=== PATIENT | female | born 1955 | race Caucasian/White ===

== ENCOUNTER 2018-02-16 05:38 | Emergency (ER) | payer SELFPAY ==
[2018-02-16] MEDS ORDERED: CEFTRIAXONE 1 GM/D5W RTU 1 GM/50 ML RTUPB IV ONE (05:41)
--- NOTE | 2018-02-16 05:47 | ER Document Report ---
Doctor's Note Notes: 02/16/18 05:46 62-year-old female who presents here from [place] with complaints of nausea vomiting diarrhea fever of 2 day duration. Patient also notes she has a history of anxiety and depression and that she was taking her clonazepam because of stressful and she may have taken too much of it EMS noted temperature 102.9 and give Tylenol prior to arrival I have greeted and performed a rapid initial assessment of this patient. A comprehensive ED assessment and evaluation of the patient, analysis of test results and completion of the medical decision making process will be conducted by additional ED providers. PHYSICAL EXAMINATION: GENERAL: Febrile drowsy HEAD: Atraumatic, normocephalic. EYES: Pupils equal round extraocular movements intact, conjunctiva are normal. ENT: Nares patent NECK: Normal range of motion LUNGS: Decreased breath sounds at the bases Musculoskeletal: Normal range of motion NEUROLOGICAL: Normal speech, normal gait. PSYCH: Normal mood, normal affect. SKIN: Warm, Dry, normal turgor, no rashes or lesions noted.
--- NOTE | 2018-02-16 06:21 | EKG REPORT ---
SEVERITY:- ABNORMAL ECG - SINUS TACHYCARDIA BORDERLINE LEFT AXIS DEVIATION BORDERLINE T ABNORMALITIES, INFERIOR LEADS : Confirmed by: Adriel Musa MD 16-Feb-2018 06:20:53
--- NOTE | 2018-02-16 06:24 | ER Document Report ---
ED General - General Chief Complaint: Fever Stated Complaint: FEVER Time Seen by Provider: 02/16/18 05:41 Mode of Arrival: Ambulatory Information source: Patient, Relative Notes: 62-year-old female with a history of hypertension, diabetes, anxiety and depression presents from home with complaints of shortness of breath, cough, chills, nausea, vomiting, diarrhea and abdominal pain as well as headache. Patient states symptoms started 2 days prior to arrival. She states that for over the last few days she has felt chills. She has had a intermittent productive cough that is associated with shortness of breath. Her abdominal pain and vomiting began last night. She states she has had 5 episodes of nonbloody nonbilious vomiting. Patient has had intermittent episodes of abdominal cramping that is diffusely located, described as cramping and worsened with coughing. Patient has also had 3-4 episodes of nonbloody diarrhea. Patient admits to taking 3-10 mg clonazepam not to harm herself but because she has not been able to sleep for the last few days. Denies suicidal and homicidal ideation. She does state she has been recently under a lot of stress due to her strained relationship with her daughter in [place]. She has had no recent travel, or antibiotic use. TRAVEL OUTSIDE OF THE [place] 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 - Social History Smoking Status: Never Smoker Chew tobacco use (# tins/day): Yes Frequency of alcohol use: None Drug Abuse: None Lives with: Family Family History: Reviewed & Not Pertinent Patient has suicidal ideation: No Patient has homicidal ideation: No - Past Medical History Cardiac Medical History: Reports: Hx Heart Attack, Hx Hypertension Endocrine Medical History: Reports: Hx Diabetes Mellitus Type 2, Hx Hyperthyroidism Renal/ Medical History: Denies: Hx Peritoneal Dialysis Past Surgical History: Reports: Hx Section - 1991 Review of Systems - Review of Systems Notes: Patient complaining of headache, nausea, vomiting, shortness of breath, productive cough, abdominal pain, diarrhea. She denies any chest pain, back pain, dysuria, hematuria, vaginal discharge Physical Exam - Vital signs Vitals: Pulse Ox 93 02/16/18 05:43 Interpretation: Normal, Tachycardic, Febrile - Notes Notes: PHYSICAL EXAMINATION: GENERAL: Well-appearing, well-nourished and in no acute distress. Patient does not appear toxic HEAD: Atraumatic, normocephalic. EYES: Pupils equal round and reactive to light, extraocular movements intact, conjunctiva are normal. ENT: Nares patent, oropharynx clear without exudates. dry mucous membranes. NECK: Normal range of motion, supple without lymphadenopathy LUNGS: Breath sounds clear to auscultation bilaterally and equal. No wheezes rales or rhonchi. HEART: Regular rate and rhythm without murmurs ABDOMEN: Soft, nontender, nondistended abdomen. No guarding, no rebound. No masses appreciated. Female : deferred Musculoskeletal: Normal range of motion, no pitting or edema. No cyanosis. NEUROLOGICAL: Cranial nerves grossly intact. Normal speech, normal gait. Normal sensory, motor exams PSYCH: Normal mood, normal affect. SKIN: Warm, Dry, normal turgor, no rashes or lesions noted. Course - Re-evaluation Re-evalutation: Laboratory 02/16/18 02/16/18 02/16/18 05:57 06:10 06:10 WBC 9.6 RBC 4.48 Hgb 12.0 Hct 35.9 L MCV 80 MCH 26.8 L MCHC 33.4 RDW 14.5 H Plt Count 251 Seg Neutrophils % 87.1 H Lymphocytes % 8.0 L Monocytes % 2.7 L Eosinophils % 1.5 Basophils % 0.7 Absolute Neutrophils 8.3 H Absolute Lymphocytes 0.8 Absolute Monocytes 0.3 Absolute Eosinophils 0.1 Absolute Basophils 0.1 PT 15.0 INR 1.12 VBG pH VBG pCO2 VBG HCO3 VBG Base Excess Sodium Potassium Chloride Carbon Dioxide Anion Gap BUN Creatinine Est GFR ( Amer) Est GFR (Non-Af Amer) Glucose POC Glucose 158 H Lactic Acid Calcium Total Bilirubin Direct Bilirubin Neonat Total Bilirubin Neonat Direct Bilirubin Neonat Indirect Bili AST ALT Alkaline Phosphatase Total Protein Albumin Urine Color Urine Appearance Urine pH Ur Specific Warren Urine Protein Urine Glucose (UA) Urine Ketones Urine Blood Urine Nitrite Urine Bilirubin Urine Urobilinogen Ur Leukocyte Esterase Urine WBC (Auto) Urine RBC (Auto) Urine Bacteria (Auto) Squamous Epi Cells Auto Urine Mucus (Auto) Urine Ascorbic Acid 02/16/18 02/16/18 02/16/18 06:10 06:10 06:10 WBC RBC Hgb Hct MCV MCH MCHC RDW Plt Count Seg Neutrophils % Lymphocytes % Monocytes % Eosinophils % Basophils % Absolute Neutrophils Absolute Lymphocytes Absolute Monocytes Absolute Eosinophils Absolute Basophils PT INR VBG pH 7.40 VBG pCO2 41.4 VBG HCO3 24.8 VBG Base Excess 0 Sodium 142.0 Potassium 3.6 Chloride 101 Carbon Dioxide 26 Anion Gap 15 BUN 12 Creatinine 0.62 Est GFR ( Amer) > 60 Est GFR (Non-Af Amer) > 60 Glucose 162 H POC Glucose Lactic Acid 2.0 Calcium 9.5 Total Bilirubin 1.4 H Direct Bilirubin 0.6 H Neonat Total Bilirubin Not Reportable Neonat Direct Bilirubin Not Reportable Neonat Indirect Bili Not Reportable AST 47 H ALT 44 Alkaline Phosphatase 96 Total Protein 7.3 Albumin 4.0 Urine Color Urine Appearance Urine pH Ur Specific Warren Urine Protein Urine Glucose (UA) Urine Ketones Urine Blood Urine Nitrite Urine Bilirubin Urine Urobilinogen Ur Leukocyte Esterase Urine WBC (Auto) Urine RBC (Auto) Urine Bacteria (Auto) Squamous Epi Cells Auto Urine Mucus (Auto) Urine Ascorbic Acid 02/16/18 02/16/18 06:20 07:36 WBC RBC Hgb Hct MCV MCH MCHC RDW Plt Count Seg Neutrophils % Lymphocytes % Monocytes % Eosinophils % Basophils % Absolute Neutrophils Absolute Lymphocytes Absolute Monocytes Absolute Eosinophils Absolute Basophils PT INR VBG pH VBG pCO2 VBG HCO3 VBG Base Excess Sodium Potassium Chloride Carbon Dioxide Anion Gap BUN Creatinine Est GFR ( Amer) Est GFR (Non-Af Amer) Glucose POC Glucose 127 H Lactic Acid Calcium Total Bilirubin Direct Bilirubin Neonat Total Bilirubin Neonat Direct Bilirubin Neonat Indirect Bili AST ALT Alkaline Phosphatase Total Protein Albumin Urine Color YELLOW Urine Appearance SLIGHTLY-CLOUDY Urine pH 6.0 Ur Specific Warren 1.010 Urine Protein 30 H Urine Glucose (UA) 50 H Urine Ketones NEGATIVE Urine Blood SMALL H Urine Nitrite POSITIVE H Urine Bilirubin NEGATIVE Urine Urobilinogen 4.0 H Ur Leukocyte Esterase MODERATE H Urine WBC (Auto) 120 Urine RBC (Auto) 11 Urine Bacteria (Auto) 3+ Squamous Epi Cells Auto <1 Urine Mucus (Auto) RARE Urine Ascorbic Acid NEGATIVE Chest X-Ray 02/16/18 05:45 IMPRESSION: 1. No acute pulmonary process identified. Head CT 02/16/18 06:17 IMPRESSION: 1. No acute intracranial abnormality identified. This exam was performed according to our departmental dose-optimization program, which includes automated exposure control, adjustment of the mA and/or kV according to patient size and/or use of iterative reconstruction technique. Abdomen/Pelvis CT 02/16/18 06:18 IMPRESSION: 1. Small right inguinal hernia contains a loop of small bowel. No evidence of mechanical bowel obstruction. 2. Otherwise unremarkable abdominopelvic CT with IV contrast. 02/16/18 06:24 62-year-old female with a history of hypertension, diabetes, anxiety and depression presents from home with complaints of shortness of breath, cough chills, nausea, vomiting, diarrhea and abdominal pain as well as headache. Patient states symptoms started 2 days prior to arrival. She states that for over the last few days she has felt chills. He has had a intermittent productive cough that is associated with shortness of breath. Her abdominal pain and vomiting began last night. Upon arrival vitals are reviewed. Patient is tachycardic, febrile. She is alert and oriented 3. Exam is essentially normal except for dry mucous membranes. Patient denies intentional overdose with her clonazepam and states that she took extra to help her sleep. Sepsis workup initiated. 02/16/18 07:58 Patient informed that she has a urinary tract infection. Ceftriaxone, IV fluids , Tylenol, Toradol, Zofran was administered. She is declining admission to the hospital. 02/16/18 11:17 On reevaluation patient states that she still has a headache even though the Tylenol intermittently helped. She has no evidence of nuchal rigidity or meningismus. She has had no head trauma. CT of the brain was within normal limits. CT of the abdomen and pelvis shows a small right inguinal hernia but without evidence of incarceration, strangulation, obstruction and free air. She states she drinks coffee every morning and thinks this is why she has a headache. She is still declining admission. She is requesting food and coffee which was provided to the patient. Patient is able to ambulate without difficulty or assistance. Patient will be discharged home with recommendations to return if she is unable to tolerate her in antibiotics. 02/16/18 11:21 Patient's heart rate improved and fever has resolved prior to discharge home.. 02/16/18 17:50 - Vital Signs Vital signs: Temp Pulse Resp BP Pulse Ox 98.6 F 17 109/53 L 99 02/16/18 11:09 02/16/18 11:09 02/16/18 11:09 02/16/18 11:09 - Laboratory Result Diagrams: 02/16/18 06:10 02/16/18 06:10 Laboratory results interpreted by me: 02/16/18 02/16/18 02/16/18 05:57 06:10 06:10 Hct 35.9 L MCH 26.8 L RDW 14.5 H Seg Neutrophils % 87.1 H Lymphocytes % 8.0 L Monocytes % 2.7 L Absolute Neutrophils 8.3 H Glucose 162 H POC Glucose 158 H Total Bilirubin 1.4 H Direct Bilirubin 0.6 H AST 47 H Urine Protein Urine Glucose (UA) Urine Blood Urine Nitrite Urine Urobilinogen Ur Leukocyte Esterase 02/16/18 02/16/18 06:20 07:36 Hct MCH RDW Seg Neutrophils % Lymphocytes % Monocytes % Absolute Neutrophils Glucose POC Glucose 127 H Total Bilirubin Direct Bilirubin AST Urine Protein 30 H Urine Glucose (UA) 50 H Urine Blood SMALL H Urine Nitrite POSITIVE H Urine Urobilinogen 4.0 H Ur Leukocyte Esterase MODERATE H - Diagnostic Test Radiology reviewed: Image reviewed, Reports reviewed - EKG Interpretation by Me EKG shows normal: Sinus rhythm Rate: Tachycardia Rhythm: NSR Discharge - Discharge Clinical Impression: Fever Qualifiers: Fever type: unspecified Qualified Code(s): R50.9 - Fever, unspecified Inguinal hernia Qualifiers: Obstruction and gangrene presence: without obstruction or gangrene Laterality: unilateral Recurrence: recurrent Qualified Code(s): K40.91 - Unilateral inguinal hernia, without obstruction or gangrene, recurrent Condition: Good Disposition: HOME, SELF-CARE Instructions: Fever ([facility]), Urinary Tract Infection, Child ([facility]) Additional Instructions: Follow up with your physician tomorrow for further care or return to the ED IMMEDIATELY if symptoms worsen or new concerns occur. If you cannot afford to follow up with your primary care physician a list of low cost clinics have been provided at the end of your discharge papers as well. Prescriptions: Ciprofloxacin HCl [Cipro 500 mg Tablet] 500 mg PO BID #14 tablet
[2018-02-16 06:27] LABS: ABSOLUTE BASOPHILS # (AUTO) 0.1 10^3/uL (0.0-0.2); ABSOLUTE EOSINOPHILS # (AUTO) 0.1 10^3/uL (0.0-0.6); ABSOLUTE LYMPHOCYTES (AUTO) 0.8 10^3/uL (0.5-4.7); ABSOLUTE MONOCYTES (AUTO) 0.3 10^3/uL (0.1-1.4); ABSOLUTE NEUT (AUTO) 8.3 10^3/uL (1.7-8.2); BASOPHILS % (AUTO) 0.7 % (0-2); EOSINOPHILS % (AUTO) 1.5 % (0-6); HEMATOCRIT 35.9 % (36.0-47.0); MEAN CORPUSCULAR HEMOGLOBIN 26.8 pg (27.0-33.4); MEAN CORPUSCULAR HGB CONC 33.4 g/dL (32.0-36.0); MEAN CORPUSCULAR VOLUME 80 fl (80-97); MONOCYTES % (AUTO) 2.7 % (3-13); PLATELET COUNT 251 10^3/uL (150-450); RED BLOOD COUNT 4.48 10^6/uL (3.72-5.28); RED CELL DISTRIBUTION WIDTH 14.5 % (11.5-14.0); SEGMENTED NEUTROPHILS % (AUTO) 87.1 % (42-78); TOTAL CELLS COUNTED % (AUTO) 100 %; WHITE BLOOD COUNT 9.6 10^3/uL (4.0-10.5)
[2018-02-16 06:34] LABS: VENOUS BLOOD HCO3 24.8 mmol/L (20-32); VENOUS BLOOD PCO2 41.4 mmHg (35-63); VENOUS BLOOD PH 7.4 (7.30-7.42)
[2018-02-16 06:38] LABS: APPEARANCE,URINE SLIGHTLY-CLOUDY; BILIRUBIN,URINE NEGATIVE (NEGATIVE); COLOR,URINE YELLOW; GLUCOSE, URINE 50 mg/dL (NEGATIVE); KETONES,URINE NEGATIVE (NEGATIVE); LEUKOCYTE ESTERASE,URINE MODERATE (NEGATIVE); NITRITE,URINE POSITIVE (NEGATIVE); PROTEIN,URINE 30 mg/dL (NEGATIVE)
[2018-02-16 06:44] LABS: INTERNATIONAL RATION (INR) 1.12
[2018-02-16 06:48] LABS: ALANINE AMINOTRANSFERASE 44 U/L (9-52); ALKALINE PHOSPHATASE 96 U/L (38-126); ANION GAP 15 (5-19); ASPARTATE AMINO TRANSFERASE 47 U/L (14-36); BILIRUBIN,DIRECT 0.6 mg/dL (0.0-0.4); BILIRUBIN,TOTAL 1.4 mg/dL (0.2-1.3); BLOOD UREA NITROGEN 12 mg/dL (7-20); CALCIUM 9.5 mg/dL (8.4-10.2); CARBON DIOXIDE 26 mmol/L (22-30); CHLORIDE 101 mmol/L (98-107); GLUCOSE 162 mg/dL (75-110); POTASSIUM 3.6 mmol/L (3.6-5.0); TOTAL PROTEIN 7.3 g/dL (6.3-8.2)
--- NOTE | 2018-02-16 07:03 | RADIOLOGY REPORT (SQ) ---
EXAM DESCRIPTION: CHEST 2 VIEWS CLINICAL HISTORY: Febrile cough COMPARISON: 05/06/2013 FINDINGS: Frontal and lateral views of the chest. Atherosclerotic calcification and tortuosity of the thoracic aorta. No consolidation, pneumothorax, or pleural effusion. No displaced rib fractures identified. Leads overlie the chest. Upper abdominal soft tissues are unremarkable. IMPRESSION: 1. No acute pulmonary process identified.
--- NOTE | 2018-02-16 07:13 | RADIOLOGY REPORT (SQ) ---
EXAM DESCRIPTION: CT HEAD WITHOUT CLINICAL HISTORY: headache COMPARISON: None available TECHNIQUE: Axial CT of the head obtained from the skull apex to the skull base without contrast. FINDINGS: No acute intracranial hemorrhage identified. No mass, mass effect, shift of the midline, abnormal extra-axial fluid collection or CT evidence of acute ischemic change identified. The ventricular system is unremarkable. No acute abnormalities of the supratentorial white matter, basal ganglia, cerebellum, or brainstem. The visualized paranasal sinuses and the mastoids are clear. No skull fracture identified. Visualized orbits and globes are unremarkable. DLP:1043.77 mGy-cm IMPRESSION: 1. No acute intracranial abnormality identified. This exam was performed according to our departmental dose-optimization program, which includes automated exposure control, adjustment of the mA and/or kV according to patient size and/or use of iterative reconstruction technique.
[2018-02-16] MEDS: NORMAL SALINE 1000 ML 1,000 ML IV PRN ×2 (07:33→09:16)
[2018-02-16] MEDS ORDERED: CEFTRIAXONE SODIUM 1,000 MG in DEXTROSE 5%-WATER 50 ML IV ONE (08:00)
--- NOTE | 2018-02-16 08:16 | RADIOLOGY REPORT (SQ) ---
EXAM DESCRIPTION: CT ABD/PELVIS WITH IV ONLY COMPLETED DATE/TIME: 02/16/2018 7:04 am REASON FOR STUDY: abd pain fever COMPARISON: None. TECHNIQUE: CT scan of the abdomen and pelvis performed using helical scanning technique with dynamic intravenous contrast injection. No oral contrast. Images reviewed with lung, soft tissue, and bone windows. Reconstructed coronal and sagittal MPR images reviewed. Delayed images for evaluation of the urinary system also acquired. All images stored on PACS. All CT scanners at this facility use dose modulation, iterative reconstruction, and/or weight based d osing when appropriate to reduce radiation dose to as low as reasonably achievable (ALARA). [facility]: Dose Right [facility]: CareDose [facility]: Dose Right [facility]: Teradose 4D [facility]: [employer] CONTRAST TYPE AND DOSE: contrast/concentration: Isovue 370.00 mg/ml; Total Contrast Delivered: 100.0 ml; Total Saline Delivered: 70.0 ml RENAL FUNCTION: Creatinine 0.6 RADIATION DOSE: CT Rad equipment meets quality standard of care and radiation dose reduction techniq ues were employed. CTDIvol: 9.6 - 14.4 mGy. DLP: 1405 mGy-cm.. LIMITATIONS: None. FINDINGS: LOWER CHEST: No significant findings. No nodules or infiltrates. LIVER: Normal size. No masses. No dilated ducts. SPLEEN: Normal size. No focal lesions. PANCREAS: No masses. No significant calcifications. No adjacent inflammation or peripancreatic fluid collections. Pancreatic duct not dilated. GALLBLADDER: Absent. ADRENAL GLANDS: No significant masses or asymmetry. RIGHT KIDNEY AND URETER: No solid masses. No significant calcification. No hydronephrosis or hydroure ter. LEFT KIDNEY AND URETER: No solid masses. No significant calcification. No hydronephrosis or hydrouret er. AORTA AND VESSELS: No aneurysm. No dissection. Renal arteries, SMA, celiac without stenosis. RETROPERITONEUM: No retroperitoneal adenopathy, hemorrhage or masses. BOWEL AND PERITONEAL CAVITY: No masses or inflammatory changes. No free fluid or peritoneal masses. APPENDIX: Normal. PELVIS: No mass. No free fluid. Normal bladder. ABDOMINAL WALL: Small right inguinal hernia containing a loop of small bowel. BONES: No significant or acute findings. OTHER: No other significant finding. IMPRESSION: 1. Small right inguinal hernia contains a loop of small bowel. No evidence of camera mechanic al bowel obstruction. 2. Otherwise unremarkable abdominopelvic CT with IV contrast. TECHNICAL DOCUMENTATION: JOB ID: [id number] Quality ID # [id number]: Final reports with documentation of one or more dose reduction techniques (e.g., Au tomated exposure control, adjustment of the mA and/or kV according to patient size, use of iterative reconstruction technique) 2010 [employer]- All Rights Reserved Reading location - IP/workstation name: [email or web address]
[2018-02-16] MEDS ORDERED: KETOROLAC TROMETHAMINE INJ/PF 30 MG/1 ML SDV IV ONE (09:24)
[2018-02-16] MEDS ORDERED: ACETAMINOPHEN 325 MG TABLET PO ONE (09:24)
[2018-02-16] MEDS ORDERED: ONDANSETRON HCL INJ/PF 4 MG/2 ML SDV IV ONE (09:24)
[2018-02-16] MEDS ORDERED: NORMAL SALINE 1000 ML 1,000 ML IV ONE (10:34)
[2018-02-16 11:48] VITALS: BP 109/53
== END 2018-02-16 11:48 | disposition home or self-care (01) ==
LOC: ER 05:38
DX: R50.9 Fever, unspecified (principal); K40.90 Unilateral inguinal hernia, without obstruction or gangrene, not specified as recurrent; R06.02 Shortness of breath; R05 Cough; R11.2 Nausea with vomiting, unspecified; R19.7 Diarrhea, unspecified; R51 Headache; I25.2 Old myocardial infarction; R00.0 Tachycardia, unspecified; I10 Essential (primary) hypertension; E11.9 Type 2 diabetes mellitus without complications; R10.84 Generalized abdominal pain; Z62.820 Parent-biological child conflict; F41.9 Anxiety disorder, unspecified; Z79.899 Other long term (current) drug therapy; Z72.0 Tobacco use
CPT/HCPCS: 93005; 99285; 96361; 96375; 96365; 36415; 87040; 87086; 82962; 85025; 85610; 87077; 87088; 80053; 81001; 87186; 82803; 83605; 71046; 70450; 74177; 93010; J1885; J0696; J2405; J7030